=== PATIENT | male | born 1985 | race African-American/Black ===

== ENCOUNTER 2017-07-24 20:57 | Emergency (ER) | payer MEDICAID, OTHER ==
[~2017-07-24] VITALS: Ht 172.7 cm; Wt 113.4 kg
[~2017-07-24 20:57] MED LIST: NKM; NORCO 5-325 TA1 EACH ORAL; NORCO 5-325 TA1 EACH PO; PERCOCET 5-3251 EACH PO; PHENERGAN25 M1 ORAL; VALIUM10 MG ORAL
[2017-07-24 21:15] VITALS: BP 151/84
--- NOTE | 2017-07-24 21:54 | Emergency Room Report ---
History of Present Illness General Chief Complaint: Generalized Weakness Source: Patient Present Illness HPI 31-year-old male, history of sickle cell disease, history of strokes in the past , the last stroke was about 15 months ago, on Plavix, presenting with right arm and right leg weakness. The last time he was normal was 2-1/2 hours ago. States that he was walking felt that he was taking scratched his back onto a door. Did not fall. No headache no blurry vision no trouble with speech. No other complaints Allergies: Coded Allergies: METOCLOPRAMIDE HCL (Verified Allergy, Intermediate, HALLUCINATION, 10/20/12 ) PROCHLORPERAZINE EDISYLATE (Verified Allergy, Intermediate, HALLUCINATION , 10/20/12) PROCHLORPERAZINE MALEATE (Verified Allergy, Intermediate, HALLUCINATION, ) NSAIDS (NON-STEROIDAL ANTI-INFLAMMA (Verified Allergy, THROAT SWELLING, ) ONDANSETRON HCL (Verified Allergy, Hallucinations, 12/05/12) PENICILLINS (Verified Allergy, Hives, 10/20/12) Patient History Past Medical History: see triage record Past Surgical History: none Pertinent Family History: none Reviewed Nursing Documentation: PMH: Agreed, PSxH: Agreed Nursing Documentation-PMH Hx Neurological Problems: Yes Hx Cerebrovascular Accident: Yes - 4 STROKES,LAST ONE MAR 2017 Review of Systems All Other Systems: negative except mentioned in HPI Physical Exam Vital Signs Date Time Temp Pulse Resp B/P (MAP) Pulse Ox O2 Delivery O2 Flow Rate FiO2 07/24/17 21:03 99.9 106 16 151/84 96 Room Air 99.9 Sp02 EP Interpretation: reviewed, normal General Appearance: alert, non-toxic, mild distress Head: normocephalic, atraumatic Eyes: bilateral eye normal inspection, bilateral eye PERRL, bilateral eye EOMI ENT: normal ENT inspection, normal pharynx, normal voice, moist mucus membranes Neck: normal inspection, full range of motion, supple Respiratory: normal inspection, lungs clear, normal breath sounds, no respiratory distress, no retraction, no wheezing, speaking full sentences, chest symmetrical Cardiovascular #1: normal inspection, regular rate, rhythm, normal capillary refill Cardiovascular #2: 2+ radial (R), 2+ radial (L) Gastrointestinal: normal inspection, non tender, soft, non-distended, no guarding Genitourinary: no CVA tenderness Musculoskeletal: normal inspection, back normal, normal range of motion, non- tender Neurologic: grievance and appeals specialist III-XII nml as tested, other - Right upper extremity motor strength 5, right lower extremity motor strength 5, right-sided pronator drift. Heel to doyle test normal bilaterally. ANO x4. No slurred speech Psychiatric: normal inspection, judgement/insight normal, memory normal Skin: normal inspection, normal color, no rash, warm/dry, well hydrated, normal turgor Procedures Critical Care Time Critical Care Time 40 minutes of CC time 31-year-old male with right-sided weakness, possible stroke VS: Slightly tachycardic Airway patent. Not hypoxic. PLAN: IV access, labs, CT head, neurology consult Anticipate admission to [facility] CC time also includes review of labs, review of EMR, discussion with family and paperwork from SNF, d/w hospitalist CC could include dosing of pressors, additional Abx CC time does not include procedures Medical Decision Making Diagnostic Impression: Primary Impression: CVA (cerebral vascular accident) ER Course 31-year-old male with right arm and right leg weakness DDX: Electrolyte disturbance, sickle-cell crisis, CVA Plan: Obtain labs, ua, EKG, CXR CT head, neurology consult ER course: Patient with NIH stroke scale of 2. There are no absolute contraindications to TPA. Patient on Plavix. I discussed with [facility] neurologist. Dr. Lopez. Discussion was made to give TPA to the patient. Patient has received TPA in the past, he understands that there is risks involved with having TPA such as intracranial hemorrhage. Strict discussion was made, patient agreed to having tpa. Patient stable. BP 143/98 Given TPA bolus and drip running stable for DC Disposition: Patient is to be transferred to [facility] I spoke to Dr Lopez who has accepted patient for transfer Please note that this Emergency Department Report was dictated using [employer] supervisor technology software, occasionally this can lead to erroneous entry secondary to interpretation by the dictation equipment. EKG Diagnostic Results EP Interpretation: Yes Rate: normal Rhythm: NSR ST Segments: T-wave inversions noted in lead 2, 3, aVF ASA given to patient: No Rhythm Strip EP Interpretation: Yes Rate: 110 Rhythm: NSR, no PVCs, no ectopy Chest X-ray CXR: Ordered: Yes 1 view Indication: ams EP interpretation: Yes Interpretation: No consolidation, no effusion, no PTX, no acute cardiopulmonary disease Impression: No acute disease Electronically signed by Nisa Peña MD Laboratory Tests Test 07/24/17 22:10 White Blood Count 10.2 K/UL (4.8-10.8) Red Blood Count 3.76 M/UL (4.70-6.10) L Hemoglobin 11.2 G/DL (14.2-18.0) L Hematocrit 33.5 % (42.0-52.0) L Mean Corpuscular Volume 89 FL (80-99) Mean Corpuscular Hemoglobin 29.7 PG (27.0-31.0) Mean Corpuscular Hemoglobin Concent 33.4 G/DL (32.0-36.0) Red Cell Distribution Width 18.0 % (11.6-14.8) H Platelet Count 255 K/UL (150-450) Mean Platelet Volume 8.3 FL (6.5-10.1) Neutrophils (%) (Auto) 66.7 % (45.0-75.0) Lymphocytes (%) (Auto) 21.4 % (20.0-45.0) Monocytes (%) (Auto) 10.8 % (1.0-10.0) H Eosinophils (%) (Auto) 0.4 % (0.0-3.0) Basophils (%) (Auto) 0.7 % (0.0-2.0) Reticulocyte Count Pending Prothrombin Time 10.8 SEC (9.30-11.50) Prothrombin Time INR 1.0 (0.9-1.1) PTT 21 SEC (23-33) L Sodium Level 142 MMOL/L (136-145) Potassium Level 3.5 MMOL/L (3.5-5.1) Chloride Level 107 MMOL/L (98-107) Carbon Dioxide Level 27 MMOL/L (21-32) Anion Gap 8 mmol/L (5-15) Blood Urea Nitrogen 7 mg/dL (7-18) Creatinine 1.2 MG/DL (0.55-1.30) Estimate Glomerular Filtration Rate > 60 mL/min (>60) Glucose Level 218 MG/DL (74-106) H Calcium Level 8.6 MG/DL (8.5-10.1) Total Bilirubin 0.2 MG/DL (0.2-1.0) Aspartate Amino Transferase (AST) 17 U/L (15-37) Alanine Aminotransferase (ALT) 50 U/L (12-78) Alkaline Phosphatase 88 U/L (46-116) Lactate Dehydrogenase 257 U/L (81-234) H Troponin I 0.014 ng/mL (0.000-0.056) Total Protein 6.7 G/DL (6.4-8.2) Albumin 3.8 G/DL (3.4-5.0) Globulin 2.9 g/dL Albumin/Globulin Ratio 1.3 (1.0-2.7) CT/MRI/US Diagnostic Results CT/MRI/US Diagnostic Results : Imaging Test Ordered: CT head Impression no acute ICH or stroke as read by [facility] Last Vital Signs Date Time Temp Pulse Resp B/P (MAP) Pulse Ox O2 Delivery O2 Flow Rate FiO2 07/24/17 21:03 99.9 106 16 151/84 96 Room Air 99.9 [facility] Condition: Serious RetinoNisa M.D. Jul 24, 2017 21:54
[2017-07-24] MEDS ORDERED: WATER STERILE IV ONE (22:00)
[2017-07-24] MEDS ORDERED: ALTEPLASE IV ONE (22:00)
[2017-07-24] MEDS ORDERED: Alteplase 100mg Inj IVP ONE (22:00)
[2017-07-24 22:34] LABS: BASOPHILS % (AUTO) 0.7 % (0.0-2.0); EOSINOPHILS % (AUTO) 0.4 % (0.0-3.0); HEMATOCRIT 33.5 % (42.0-52.0); HEMOGLOBIN 11.2 G/DL (14.2-18.0); LYMPHOCYTES % (AUTO) 21.4 % (20.0-45.0); MEAN CORPUSCULAR VOLUME 89 FL (80-99); MONOCYTES % (AUTO) 10.8 % (1.0-10.0); NEUTROPHILS % (AUTO) 66.7 % (45.0-75.0); PLATELET COUNT 255 K/UL (150-450); RED BLOOD COUNT 3.76 M/UL (4.70-6.10); WHITE BLOOD COUNT 10.2 K/UL (4.8-10.8)
[2017-07-24 22:39] LABS: ANION GAP 8 mmol/L (5-15); BLOOD UREA NITROGEN 7 mg/dL (7-18); CALCIUM 8.6 MG/DL (8.5-10.1); CARBON DIOXIDE 27 MMOL/L (21-32); CHLORIDE 107 MMOL/L (98-107); CREATININE 1.2 MG/DL (0.55-1.30); POTASSIUM 3.5 MMOL/L (3.5-5.1); SODIUM 142 MMOL/L (136-145)
[2017-07-24 22:44] LABS: ALANINE AMINOTRANSFERASE 50 U/L (12-78); ALBUMIN 3.8 G/DL (3.4-5.0); ALBUMIN/GLOBULIN RATIO 1.3 (1.0-2.7); ALKALINE PHOSPHATASE 88 U/L (46-116); ASPARTATE AMINO TRANSFERASE 17 U/L (15-37); BILIRUBIN,TOTAL 0.2 MG/DL (0.2-1.0)
[2017-07-24] MEDS ORDERED: HYDROmorphone 1mg/ml Carpuject IVP ONE (23:00)
[2017-07-24 23:30] VITALS: BP 143/98
[2017-07-24 23:35] VITALS: BP 143/98
--- NOTE | 2017-07-25 08:24 | Diagnostic Imaging Report ---
Indication: Weakness, history of 4 previous cerebral infarcts Technique: Continuous helical CT scanning of the head was performed without intravenous contrast material. Axial and coronal 5 mm sections were generated. Dose: Total Dose Length Product - DLP [address] Dose Index - CTDIvol(s) 70.38 mGy. Automated exposure control was utilized for dose reduction. Comparison: 11/14/2013 Findings: Examination demonstrates an area of encephalomalacia in the left occipital lobe. The ventricles and sulci are normal. There is no shift of midline structures. No abnormal extra-axial fluid collections are noted. There is no evidence of intracerebral bleeding. No other abnormal high or low density areas are noted within the brain. There is opacification of a left ethmoid cell. Impression: Old left occipital infarct. Mild left ethmoid sinus inflammatory disease. No acute abnormality. The above report is concordant with preliminary reading by [facility] . The CT scanner at [facility] is accredited by the [employer] and the scans are performed using protocols designed to limit radiation exposure to as low as reasonably achievable to attain images of sufficient resolution adequate for diagnostic evaluation.
--- NOTE | 2017-07-25 09:30 | Diagnostic Imaging Report ---
Indication: Reason For Exam: PAIN Technique: XRAY Chest 1v Comparison:10/20/2012 Findings: The heart is normal in size. The lungs are clear. No pleural fluid. The bony structures are unremarkable. As a filter which has been deployed in the superior vena cava. Impression: Indicator filter. Otherwise negative chest.
--- NOTE | 2017-07-25 16:10 | Cardiology Report ---
APPROVED REPORT EKG Measurement Heart [id number] [place] [id number] [id number] Sinus tachycardia T wave abnormality, consider inferior ischemia Abnormal ECG
== END 2017-07-24 23:05 | disposition short-term general hospital (02) ==
LOC: EMR 21:20
DX: I63.9 Cerebral infarction, unspecified (principal); G81.91 Hemiplegia, unspecified affecting right dominant side; Z79.02 Long term (current) use of antithrombotics/antiplatelets; Z88.0 Allergy status to penicillin; Z88.8 Allergy status to other drugs, medicaments and biological substances; D57.1 Sickle-cell disease without crisis
CPT/HCPCS: 36415; 70450; 71045; 80053; 82962; 83615; 84484; 85025; 85044; 85610; 85730; 86850; 86900; 86901; 93005; 96374; 96375; 99291; J1170; J2997; A4216